=== PATIENT | female | born 2000 | race Caucasian/White ===

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

== ENCOUNTER 2018-12-13 11:18 | Observation (INO) ==
[2018-12-13 09:13] LABS: Bilirubin,Urine Negative (Negative); Blood,Urine Moderate (Negative); Clarity,Urine Cloudy (Clear); Color,Urine Yellow (Yellow); Glucose,Urine (UA) Normal (Normal); Ketones,Urine Negative (Negative); Leukocyte Esterase,Urine Moderate (Negative); Nitrite,Urine Negative (Negative); PH,Urine 6.5 pH Units (5.0-8.0); Protein,Urine Negative (Neg-Trace); Specific Gravity,Urine 1.018 (1.010-1.025); Urobilinogen,Urine Normal (Normal)
[2018-12-13 09:16] LABS: Bacteria,Urine Moderate per hpf (None-Few); Hyaline Casts,Urine None Seen per lpf (None-Few); RBC,Urine 15-30 per hpf (0-3); Squamous Epithelial Cell,Urine Many per lpf (None-Few); WBC,Urine 30-50 per hpf (0-3)
[2018-12-13 09:18] LABS: Amphetamine Screen,Urine Negative ng/mL (Cutoff=1000); Barbiturate Screen,Urine Negative ng/mL (Cutoff=200); Benzodiazepines Screen,Urine Negative ng/mL (Cutoff=200); Cannabinoid Screen,Urine Negative ng/mL (Cutoff = 50); Cocaine Screen,Urine Negative ng/mL (Cutoff= 300); Opiate Screen,Urine Negative ng/mL (Cutoff=300); Phencyclidine Screen,Urine Negative ng/mL (Cutoff=25)
[2018-12-13 09:48] LABS: Basophils % 0.2 %; Eosinophils # 0.1 K/mcL (0.0-0.6); Eosinophils % 1.2 %; Hematocrit 33.7 % (35.3-44.9); Immature Granulocytes % 0.7 % (0-4); Lymphocytes # 1.9 K/mcL (0.6-4.6); Lymphocytes % 16.9 %; Mean Corpuscular HGB Conc 32.6 g/dL (31.6-35.5); Mean Corpuscular Hemoglobin 27.9 pg (28.0-33.3); Mean Corpuscular Volume 85.5 fL (83.0-100.0); Monocytes # 0.8 K/mcL (0.0-1.3); Monocytes % 7.2 %; Neutrophils # 8.1 K/mcL (1.6-8.9); Platelet Count 201 K/mcL (140-400); Red Blood Count 3.94 M/mcL (3.82-4.97); Red Cell Distribution Width 13.9 % (11.5-14.5); Segmented Neutrophils % 73.8 %
[2018-12-13 10:11] LABS: Alanine Aminotransferase 8 Units/L (7-52); Amylase 45 Units/L (29-103); Aspartate Amino Transferase 11 Units/L (13-39); BUN/Creatinine Ratio 15 (6-26); Bilirubin,Total 0.3 mg/dL (0.3-1.0); Blood Urea Nitrogen 7 mg/dL (6-20); Lactate Dehydrogenase 139 Units/L (140-271); Lipase 45 Units/L (11-82); Uric Acid 4.2 mg/dL (2.3-7.6); eGFR For Non-African Americans > 60 (> 60)
[~2018-12-13 11:18] MED LIST: *HR* FentaNYL (PF) 100 MCG/2 ML VIAL IVP ONE; *HR* OxyCODONE/APAP 5/325 TABLET PO ONE; Ringers Solution, Lactated 1,000 ML IVC ONE
--- NOTE | 2018-12-13 13:16 | OB/GYN History & Physical ---
Date of Encounter: 12/13/18 Time of Encounter: 13:01 Assessment and Plan (1) Abdominal pain Current visit: Yes Status: Acute 18yo at 33+4wks GA who presents with concern for bartholoin gland cyst and concern for nephrolithiasis 1. Concern for nephrolithiasis - patient reports increased pain and discomfort at 0700 this AM (R side) with radiation - retroperitoneal US (KUB) performed: mild R sided hydronephrosis and ureter which is NORMAL in - UA was performed showing +blood, negative nitrites, moderate LE, and contaminated therefore was not sent for culture - patient will have urine culture sent to lab regardless for speciation incase UA was falsely negative, RX ordered for macrobid - denies greer blood appreciated in the urine grossly, but does report severe sharp, stabbing pain - denies fevers, chills, but does report nausea 2/2 increased discomfort - discussed po hydration with patient and reports primarily tea/soda/coffee intake - we discussed the likelihood of a renal stones being 2/2 to poor home hydration and water intake - patient was started on IV pain medication(S) and aggressive IV hydration, and as she tolerates - PO as well - patient given IV phenergan throughout her observation until she was able to tolerate po - will continue IVF at 125mL/hr LR until patient pain is improved, able to tolerate PO, and possible passage of stone - will plan for observation overnight with likely discharge to home tomorrow AM - RX will need to be signed to have patient complete macrobid regimen until culture confirmed for speciation 2. Concern for labial abscess, possible bartholin cyst - patient reports increased discomfort along the R labia - has become increasingly larger, and more painful and tender to touch - denies fever, chills, bleeding - no vaginal discharge - upon examination, measuring ~5cm x 3cm, fluctuate mass, fluid filled. No drainage appreciated, and was non tender to palpation. Erythematous during exam but no irrigation or signs or pruritis appreciated - we discussed potentially incising and draining this cyst but given the patient had NO pain with palpation on examination but was writhing from the stone, we held on instigating further discomfort. It is likely she will need a word catheter placed in the outpatient setting with close follow up for removal of catheter once healed - will start po ABx regardless for patient to take PO and have patient f/u outpatient 3. MWB - AZD PNC with [facility] - denies VB/LOF/contraction(S) - reports active movement - otherwise healthy and uncomplicated with plans for - most recent appt was 12/05/2018 - plan to have patient f/u next week - RNST x 2 Dispo: Plan to keep patient overnight for IV hydration, nausea and pain control. This is likely a renal stone 2/2 symptoms presented and an otherwise normal RUQ US. No concern for pancreatitis at this time. No obstetrical concerns at this time. MD FELIPE Qualifiers: Qualified Code(s): R10.31 - Right lower quadrant pain History of Present Illness Chief complaint: RUQ Pain HPI: Ms. Aponte is a 18yo female who presents at 33+4wks GA who reports RUQP that started this AM at 0700. Uncomplicated otherwise. 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 Last appointment at 12/05/2018. She denies vaginal bleeding, leaking of fluid, or contraction(S). Does also reports increased swelling in her labia, concerning for Bartholins gland cyst on the R side. The patient denies any history of gallbladder pain or issues with digestion. Reports to have had regular bowel movements without any blood appreciated nor with and dysuria/hematuria. No obstetrical complaints, reactive and reassuring NST for GA. Past Med Surg Social Fam HX - Past Medical History Medical history: no medical history Psychiatric history: no psych history - Past Surgical History Surgical History: non-contributory Additional surgical history: right hip surgery x2 - Social History Smoking Status: Never smoker Smokeless Tobacco Status: No Alcohol use: none Drug use: none - Family History Mother Adopted: No Family Member Ethnicity: Non- Living Status: Still Living Hx Family Cardiac Disorders: No Hx Family Respiratory Disorders: No Hx Family Cancer: No Hx Family GI Disorders: No Hx Family Endocrine Disorder: No Hx Family Neuromuscular Disorders: No Hx Family Neurologic Disorders: No Hx Family HEENT Disorders: No Hx Family Autoimmune Disorders: No Maternal Grandmother Hx Family Medical Disorders: Yes (stroke) Obstetrical History - Pregnancies : 2 Para: 1 Term: 1 Livin Medications and Allergies Flintstones Gummies 1 PO DAILY 11/14/18 [History] Allergy/AdvReac Type Severity Reaction Status Date / Time No Known Allergies Allergy Verified 08/06/17 14:48 Exam - Constitutional Constitutional: well developed, well nourished, mild distress - HEENT HEENT: Normocephaly, Mucus Membranes Moist - Lungs Respiratory exam: CTAB - Cardiovascular Cardiovascular exam: RRR - Abdomen Abdomen: Present: bowel sounds normal - Vagina Vagina: Present: normal moisture - Uterus Uterus exam: Present: normal size, normal contour - Anus/Rectum Anus/Rectum: Present: normal perianal skin, heme negative Results Result Diagrams: 12/13/18 09:00 12/13/18 09:00 Abnormal lab results Hgb 11.0 g/dL (11.5-15.4) L 12/13/18 09:00 Hct 33.7 % (35.3-44.9) L 12/13/18 09:00 MCH 27.9 pg (28.0-33.3) L 12/13/18 09:00 Creatinine 0.46 mg/dL (0.60-1.20) L 12/13/18 09:00 AST 11 Units/L (13-39) L 12/13/18 09:00 Lactate Dehydrogenase 139 Units/L (140-271) L 12/13/18 09:00 Urine Clarity Cloudy (Clear) A 12/13/18 08:14 Urine Blood Moderate (Negative) H 12/13/18 08:14 Ur Leukocyte Esterase Moderate (Negative) H 12/13/18 08:14 Urine Microscopic RBC 15-30 per hpf (0-3) H 12/13/18 08:14 Urine Microscopic WBC 30-50 per hpf (0-3) H 12/13/18 08:14 Ur Squamous Epith Cells Many per lpf (None-Few) H 12/13/18 08:14 Urine Bacteria Moderate per hpf (None-Few) H 12/13/18 08:14 Ur Culture Indicated? NO. (NO) A 12/13/18 08:14 All other labs normal. - VTE Reasons for not Prescribing Prophylaxis: Treatment not Indicated - Low risk for VTE
[2018-12-13] MEDS ORDERED: *HR* HYDROmorphone (PF) 1 MG/ML SYRINGE IVP ONE (13:32)
[2018-12-13] MEDS ORDERED: *HR* Promethazine 25 MG/ML VIAL IVP ONE (14:54)
[2018-12-13] MEDS: *HR* OxyCODONE Immed Rel 5 MG TABLET PO PRN ×3 (15:24→23:39)
[2018-12-13] MEDS: *HR* Promethazine 25 MG/ML VIAL IVP PRN (15:24)
[2018-12-13] MEDS: Ringers Solution, Lactated 1,000 ML IVC SCH ×2 (15:43→23:39)
[2018-12-13] MEDS ORDERED: *HR* Promethazine 25 MG/ML VIAL IVP PRN (16:46)
[2018-12-13] MEDS: Nitrofurantoin (BID) 100 MG CAPSULE PO SCH (17:45)
[2018-12-13] MEDS ORDERED: Famotidine 20 MG/2 ML VIAL IVP SCH (18:00)
[2018-12-13] MEDS ORDERED: *HR* HYDROmorphone 2 MG/ML SYRINGE IVP ONE (20:31)
[2018-12-14] MEDS: *HR* Promethazine 25 MG/ML VIAL IVP PRN (01:11)
[2018-12-14] MEDS ORDERED: Ondansetron 4 MG/2 ML VIAL IVP PRN (08:40)
[2018-12-14] MEDS: Nitrofurantoin (BID) 100 MG CAPSULE PO SCH ×2 (09:38→20:57)
[2018-12-14] MEDS ORDERED: *HR* Meperidine 50 MG/ML SYRINGE IVP PRN (10:02)
[2018-12-14 21:06] VITALS: BP 106/59
--- NOTE | 2018-12-14 21:59 | Discharge Summary ---
Date of Encounter: 12/14/18 Time of Encounter: 21:59 - Discharge Diagnosis (1) Abdominal pain Priority: Primary Status: Acute Comments: 18yo at 33+5wks [place] who presents with concern for bartholoin gland cyst and concern for nephrolithiasis 1. Concern for nephrolithiasis - patient admitted 12/13-12/14, with concern for kidney stone - retroperitoneal US (KUB) performed: mild R sided hydronephrosis and ureter which is NORMAL in - UA was performed showing +blood, negative nitrites, moderate LE, and contaminated therefore was not sent for culture - patient will have urine culture sent to lab regardless for speciation incase UA was falsely negative, RX ordered for macrobid while inpatient but stopped as patient had passed stone and pain signifncantly improved with both IV and po h ydration and pain control - improvement of nausea, able to tolerate PO - discussed po hydration with patient and reports primarily tea/soda/coffee intake - we will f/u on urine culture with patient and treat once returns, as her presentation and UA was consistent with nephrolithiasis and contaminated urine rather than a UTI 2. Concern for labial abscess, possible bartholin cyst - patient reports increased discomfort along the R labia - has become increasingly larger, and more painful and tender to touch - denies fever, chills, bleeding - no vaginal discharge - upon examination, measuring ~5cm x 3cm, fluctuate mass, fluid filled. No drainage appreciated, and was non tender to palpation. Erythematous during exam but no irrigation or signs or pruritis appreciated - we discussed potentially incising and draining this cyst but given the patient had NO pain with palpation on examination but was writhing from the stone, we held on instigating further discomfort. It is likely she will need a word catheter placed in the outpatient setting with close follow up for removal of catheter once healed - afebrile, VSS, HDS - recommendation for patient to start ABx one lancet and word catheter placed 3. 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 Will need to have bartholin cyst re-examined and likely word catheter placed. Recommendation for patient to start ABx once lanced open. Non tender to palpation during admission. Continue po hydration. MD FELIPE Qualifiers: Qualified Code(s): R10.31 - Right lower quadrant pain - Discharge Medications Prescriptions: No Action Flintstones Gummies 1 PO DAILY Home Medications: Flintstones Gummies 1 PO DAILY 11/14/18 [History] Allergies/Adverse Reactions: Allergy/AdvReac Type Severity Reaction Status Date / Time No Known Allergies Allergy Verified 08/06/17 14:48 Data Procedures and tests throughout hospitalization: Laboratory Tests 12/13/18 12/13/18 12/13/18 08:14 08:14 09:00 WBC 11.0 RBC 3.94 Hgb 11.0 L Hct 33.7 L MCV 85.5 MCH 27.9 L MCHC 32.6 RDW 13.9 Plt Count 201 MPV 10.0 Immature Gran % 0.7 Seg Neutrophils % 73.8 Lymphocytes % 16.9 Monocytes % 7.2 Eosinophils % 1.2 Basophils % 0.2 Neutrophils # 8.1 Lymphocytes # 1.9 Monocytes # 0.8 Eosinophils # 0.1 Basophils # 0.0 BUN Creatinine Est GFR ( Amer) Est GFR (Non-Af Amer) BUN/Creatinine Ratio Uric Acid Total Bilirubin Direct Bilirubin AST ALT Lactate Dehydrogenase Amylase Lipase Urine Color Yellow Urine Clarity Cloudy A Urine pH 6.5 Ur Specific [place] 1.018 Urine Protein Negative Urine Glucose (UA) Normal Urine Ketones Negative Urine Blood Moderate H Urine Nitrite Negative Urine Bilirubin Negative Urine Urobilinogen Normal Ur Leukocyte Esterase Moderate H Urine Microscopic RBC 15-30 H Urine Microscopic WBC 30-50 H Ur Squamous Epith Cells Many H Urine Bacteria Moderate H Hyaline Casts None Seen Ur Culture Indicated? NO. A Urine Opiates Screen Negative Ur Barbiturates Screen Negative Ur Phencyclidine Scrn Negative Ur Amphetamines Screen Negative U Benzodiazepines Scrn Negative Urine Cocaine Screen Negative U Marijuana (THC) Screen Negative Ur Drug Screen Interp See Below 12/13/18 09:00 WBC RBC Hgb Hct MCV MCH MCHC RDW Plt Count MPV Immature Gran % Seg Neutrophils % Lymphocytes % Monocytes % Eosinophils % Basophils % Neutrophils # Lymphocytes # Monocytes # Eosinophils # Basophils # BUN 7 Creatinine 0.46 L Est GFR ( Amer) > 60 Est GFR (Non-Af Amer) > 60 BUN/Creatinine Ratio 15 Uric Acid 4.2 Total Bilirubin 0.3 Direct Bilirubin 0.0 AST 11 L ALT 8 Lactate Dehydrogenase 139 L Amylase 45 Lipase 45 Urine Color Urine Clarity Urine pH Ur Specific [place] Urine Protein Urine Glucose (UA) Urine Ketones Urine Blood Urine Nitrite Urine Bilirubin Urine Urobilinogen Ur Leukocyte Esterase Urine Microscopic RBC Urine Microscopic WBC Ur Squamous Epith Cells Urine Bacteria Hyaline Casts Ur Culture Indicated? Urine Opiates Screen Ur Barbiturates Screen Ur Phencyclidine Scrn Ur Amphetamines Screen U Benzodiazepines Scrn Urine Cocaine Screen U Marijuana (THC) Screen Ur Drug Screen Interp - Impressions ITS Impressions Retroperitoneum Ultrasound 12/13/18 11:30 IMPRESSION: Mild right-sided hydronephrosis and hydroureter D/ / Juan Napier MD / Juan Napier MD Interpreting Provider: Juan Napier MD Date of admission: 12/13/18 08:12 Primary care physician: Jagjit Ovalle MD Discharging clinician: Arabella Osei Anticipated date of discharge: 12/14/18 - Patient Status Disposition: Home, Self-Care Condition: Good Overall status at discharge: patient is back to baseline - Discharge Instructions Follow Up With: Jagjit Ovalle MD [Primary Care Provider] - Hospital Course SL[facility]WYER Time Attestation: Total time spent providing and/or coordinating discharge services: Exam - Constitutional Vitals: Temp Pulse Resp BP Pulse Ox 98.4 F 104 14 106/59 99 12/14/18 20:00 12/14/18 20:00 12/14/18 20:00 12/14/18 20:00 12/14/18 20:00 General appearance IM: A&O X 0 - Respiratory Respiratory exam: Present: CTAB - Cardiovascular Cardiovascular exam IM: Present: RRR - GI/Abdominal Incision: normal, dry, intact - Rectal Rectal exam: deferred - Neurological Exam Neurological exam: CN II-XII intact - VTE Reasons for not Prescribing Prophylaxis: Treatment not Indicated - Low risk for VTE
== END 2018-12-14 22:20 | disposition home or self-care (01) ==
LOC: 1NENULAB → 1NENUOBS 12-14 09:53
PROVIDERS: ADMIT Advanced Practice Midwife; ATTEND Advanced Practice Midwife

== ENCOUNTER 2019-04-03 17:18 | Observation (INO) ==
[2019-04-03] MEDS ORDERED: methylPREDNISolone 125 MG/2 ML VIAL IM ONE (19:50)
[2019-04-03] MEDS ORDERED: Famotidine 20 MG TABLET PO ONE (19:54)
[2019-04-03] MEDS ORDERED: EPINEPHrine 1 MG/ML VIAL IM ONE (20:45)
[2019-04-03 22:27] LABS: Basophils % 0.1 %; Eosinophils % 0.1 %; Hematocrit 43.7 % (35.3-44.9); Hemoglobin 14.2 g/dL (11.5-15.4); Immature Granulocytes % 0.4 % (0-4); Lymphocytes # 2.9 K/mcL (0.6-4.6); Lymphocytes % 13.7 %; Mean Corpuscular HGB Conc 32.5 g/dL (31.6-35.5); Mean Corpuscular Hemoglobin 26.8 pg (28.0-33.3); Mean Corpuscular Volume 82.6 fL (83.0-100.0); Mean Platelet Volume 10.2 fL (9.4-12.4); Monocytes # 1.2 K/mcL (0.0-1.3); Monocytes % 5.5 %; Neutrophils # 17.1 K/mcL (1.6-8.9); Platelet Count 391 K/mcL (140-400); Red Blood Count 5.29 M/mcL (3.82-4.97); Red Cell Distribution Width 14.6 % (11.5-14.5); Segmented Neutrophils % 80.2 %; White Blood Count 21.4 K/mcL (4.3-11.1)
[2019-04-03 22:47] LABS: Alanine Aminotransferase 30 Units/L (7-52); Albumin 4.1 g/dL (3.5-5.7); Albumin/Globulin Ratio 1.6 (1.1-2.2); Alkaline Phosphatase 73 Units/L (34-104); Aspartate Amino Transferase 22 Units/L (13-39); BUN/Creatinine Ratio 11 (6-26); Bilirubin,Total 0.3 mg/dL (0.3-1.0); Blood Urea Nitrogen 7 mg/dL (6-20); C-Reactive Protein 7 mg/L (Less than 10); Calcium 9.2 mg/dL (8.6-10.3); Carbon Dioxide 19 mEq/L (23-29); Chloride 106 mEq/L (98-107); Globulin 2.5 g/dL (2.4-3.5); Glucose 123 mg/dL (70-105); Osmolality,Calculated 283 (280-300); Potassium 3.7 mEq/L (3.5-5.1); Sodium 137 mEq/L (136-145); Total Protein 6.6 g/dL (6.4-8.9); eGFR For African Americans > 60 (> 60); eGFR For Non-African Americans > 60 (> 60)
[2019-04-03] MEDS ORDERED: 0.9 % Sodium Chloride 1,000 ML IVC ONE (23:24)
[2019-04-04 00:14] LABS: Bilirubin,Urine Negative (Negative); Blood,Urine Trace (Negative); Clarity,Urine Clear (Clear); Color,Urine Yellow (Yellow); Glucose,Urine (UA) Normal (Normal); Ketones,Urine Negative (Negative); Leukocyte Esterase,Urine Small (Negative); Nitrite,Urine Negative (Negative); Protein,Urine Negative (Neg-Trace); Specific Gravity,Urine 1.007 (1.010-1.025); Urobilinogen,Urine Normal (Normal)
[2019-04-04 00:16] LABS: Bacteria,Urine None Seen per hpf (None-Few); Hyaline Casts,Urine None Seen per lpf (None-Few); RBC,Urine 0-3 per hpf (0-3); Squamous Epithelial Cell,Urine Many per lpf (None-Few)
[2019-04-04] MEDS ORDERED: Naloxone 0.4 MG/ML INJ IVP PRN (01:57)
[2019-04-04] MEDS ORDERED: *HR* Metoprolol 5 MG/5 ML VIAL IVP ONE (02:02)
[2019-04-04] MEDS ORDERED: *HR* Metoprolol 5 MG/5 ML VIAL IVP PRN (06:06)
[2019-04-04] MEDS ORDERED: MethylPREDNISolone 40 MG/ML VIAL IVP SCH (08:54)
[2019-04-04] MEDS ORDERED: Famotidine 20 MG TABLET PO SCH (09:00)
[2019-04-04 11:13] VITALS: BP 126/77
[2019-04-04] MEDS ORDERED: *HR* Heparin 5,000 UNIT/ML VIAL SQ SCH (18:00)
== END 2019-04-04 12:05 | disposition home or self-care (01) ==
LOC: 3NENU 17:18 → EMEROOARM 17:18 → ICNU 23:43 → 3NENU 04-04 01:09
PROVIDERS: ADMIT Internal Medicine Nephrology; ATTEND Internal Medicine Nephrology

== ENCOUNTER → 2020-11-03 02:02 | Observation (INO) ==
[2020-11-02 17:37] LABS: Bacteria,Urine Few per hpf (None-Few); Bilirubin,Urine Negative (Negative); Blood,Urine Small (Negative); Clarity,Urine Clear (Clear); Color,Urine Light-Yellow (Yellow); Glucose,Urine (UA) Normal (Normal); Hyaline Casts,Urine Few per lpf (None Seen); Ketones,Urine Negative (Negative); Leukocyte Esterase,Urine Moderate (Negative); Mucus,Urine Few per lpf (None-Few); Nitrite,Urine Negative (Negative); PH,Urine 6.5 pH Units (5.0-8.0); Protein,Urine Trace mg/dL (Neg-Trace); RBC,Urine 0-3 per hpf (0-3); Squamous Epithelial Cell,Urine Moderate per hpf (None-Few); Urobilinogen,Urine Normal (Normal); WBC,Urine 0-3 per hpf (0-3)
[2020-11-02 22:08] LABS: Basophils % 0.2 %; Eosinophils # 0.2 K/mcL (0.0-0.6); Eosinophils % 1.5 %; Hematocrit 32.6 % (35.3-44.9); Hemoglobin 10.3 g/dL (11.5-15.4); Immature Granulocytes % 0.6 % (0-4); Lymphocytes # 2.5 K/mcL (0.6-4.6); Lymphocytes % 17.5 %; Mean Corpuscular HGB Conc 31.6 g/dL (31.6-35.5); Mean Corpuscular Hemoglobin 26.9 pg (28.0-33.3); Mean Corpuscular Volume 85.1 fL (83.0-100.0); Mean Platelet Volume 10.1 fL (9.4-12.4); Monocytes % 6.7 %; Neutrophils # 10.5 K/mcL (1.6-8.9); Platelet Count 247 K/mcL (140-400); Red Blood Count 3.83 M/mcL (3.82-4.97); Red Cell Distribution Width 15.3 % (11.5-14.5); Segmented Neutrophils % 73.5 %; White Blood Count 14.3 K/mcL (4.3-11.1)
[~2020-11-03 02:02] MED LIST changes: -*HR* FentaNYL (PF) 100 MCG/2 ML VIAL IVP ONE; -*HR* OxyCODONE/APAP 5/325 TABLET PO ONE; +FLU Vac QV 20-21 (6Month+)/PF 0.5 ML SYRINGE IM ONE; +NIFEdipine 10 MG CAPSULE PO ONE; +Ondansetron ODT 4 MG TAB.RAPDIS SL ONE; +Ringers Solution, Lactated 1,000 ML IVC SCH; +Ringers Solution, Lactated 1,000 ML ONE; +cefTRIAXone 2,000 MG in Water for inj. (sterile) 20 ML IVP ONE
== END | disposition home or self-care (01) ==
LOC: 1NENULAB
PROVIDERS: ADMIT Obstetrics & Gynecology; ATTEND Obstetrics & Gynecology

== ENCOUNTER → 2020-11-08 17:15 | Observation (INO) ==
[2020-11-08 13:46] LABS: Bacteria,Urine Few per hpf (None-Few); Bilirubin,Urine Negative (Negative); Blood,Urine Negative (Negative); Clarity,Urine Clear (Clear); Color,Urine Light-Yellow (Yellow); Glucose,Urine (UA) Normal (Normal); Ketones,Urine Negative (Negative); Leukocyte Esterase,Urine Large (Negative); Mucus,Urine Few per lpf (None-Few); Nitrite,Urine Negative (Negative); PH,Urine 7.5 pH Units (5.0-8.0); Protein,Urine Negative (Neg-Trace); RBC,Urine 0-3 per hpf (0-3); Specific Gravity,Urine 1.013 (1.010-1.025); Squamous Epithelial Cell,Urine Moderate per hpf (None-Few); Urobilinogen,Urine Normal (Normal); WBC,Urine 0-3 per hpf (0-3)
[2020-11-08 14:44] LABS: Basophils % 0.2 %; Eosinophils # 0.3 K/mcL (0.0-0.6); Eosinophils % 2.2 %; Hematocrit 31.9 % (35.3-44.9); Hemoglobin 9.9 g/dL (11.5-15.4); Immature Granulocytes % 0.6 % (0-4); Lymphocytes % 14.9 %; Mean Corpuscular Hemoglobin 26.8 pg (28.0-33.3); Mean Corpuscular Volume 86.2 fL (83.0-100.0); Mean Platelet Volume 10.2 fL (9.4-12.4); Monocytes # 0.8 K/mcL (0.0-1.3); Monocytes % 6.3 %; Neutrophils # 10.1 K/mcL (1.6-8.9); Platelet Count 238 K/mcL (140-400); Red Cell Distribution Width 14.9 % (11.5-14.5); Segmented Neutrophils % 75.8 %; White Blood Count 13.3 K/mcL (4.3-11.1)
[2020-11-08 14:56] LABS: Protein/Creatinine Ratio,Urine 0.15 mg/mg (0.00-0.20)
[2020-11-08 15:03] LABS: Alanine Aminotransferase 8 Units/L (7-52); Aspartate Amino Transferase 10 Units/L (13-39); BUN/Creatinine Ratio 15 (6-26); Blood Urea Nitrogen 6 mg/dL (6-20); Lactate Dehydrogenase 139 Units/L (140-271); Uric Acid 3.6 mg/dL (2.3-7.6); eGFR For African Americans > 60 (> 60); eGFR For Non-African Americans > 60 (> 60)
[2020-11-08 16:26] LABS: Candida DNA Not Detected (Not Detect); Gardnerella DNA DETECTED (Not Detect); Trichomonas DNA Not Detected (Not Detect)
[~2020-11-08 17:15] MED LIST changes: +Acetaminophen 325 MG TABLET PO ONE; -FLU Vac QV 20-21 (6Month+)/PF 0.5 ML SYRINGE IM ONE; -Ondansetron ODT 4 MG TAB.RAPDIS SL ONE; -Ringers Solution, Lactated 1,000 ML IVC ONE; -Ringers Solution, Lactated 1,000 ML IVC SCH; -Ringers Solution, Lactated 1,000 ML ONE; -cefTRIAXone 2,000 MG in Water for inj. (sterile) 20 ML IVP ONE
== END | disposition home or self-care (01) ==
LOC: 1NENULAB
PROVIDERS: ADMIT Obstetrics & Gynecology; ATTEND Obstetrics & Gynecology

== ENCOUNTER → 2020-12-07 01:30 | Observation (INO) ==
[2020-12-06 23:44] LABS: Bilirubin,Urine Negative (Negative); Blood,Urine Trace (Negative); Clarity,Urine Clear (Clear); Color,Urine Colorless (Yellow); Glucose,Urine (UA) Normal (Normal); Ketones,Urine Negative (Negative); Leukocyte Esterase,Urine Negative (Negative); Nitrite,Urine Negative (Negative); PH,Urine 6.5 pH Units (5.0-8.0); Protein,Urine Negative (Neg-Trace); Specific Gravity,Urine 1.005 (1.010-1.025); Urobilinogen,Urine Normal (Normal)
[2020-12-06 23:47] LABS: Squamous Epithelial Cell,Urine Few per hpf (None-Few)
[2020-12-06 23:48] LABS: Bacteria,Urine Few per hpf (None-Few); Transitional Epi Cells,Urine Few per hpf (None-Few); WBC,Urine 0-3 per hpf (0-3)
== END | disposition home or self-care (01) ==
LOC: 1NENULAB
PROVIDERS: ADMIT Advanced Practice Midwife; ATTEND Advanced Practice Midwife

== ENCOUNTER → 2020-12-24 16:56 | Observation (INO) ==
[2020-12-24 12:20] LABS: Bilirubin,Urine Negative (Negative); Blood,Urine Trace (Negative); Clarity,Urine Turbid (Clear); Color,Urine Yellow (Yellow); Glucose,Urine (UA) Normal (Normal); Ketones,Urine Negative (Negative); Leukocyte Esterase,Urine Negative (Negative); Nitrite,Urine Negative (Negative); PH,Urine 7.5 pH Units (5.0-8.0); Protein,Urine 30 mg/dL (Neg-Trace); Specific Gravity,Urine 1.024 (1.010-1.025); Urobilinogen,Urine Normal (Normal)
[2020-12-24 12:26] LABS: Bacteria,Urine Few per hpf (None-Few); Mucus,Urine Few per lpf (None-Few); RBC,Urine 0-3 per hpf (0-3); Squamous Epithelial Cell,Urine Few per hpf (None-Few); WBC,Urine 0-3 per hpf (0-3)
[2020-12-24 12:54] LABS: Protein/Creatinine Ratio,Urine 0.16 mg/mg (0.00-0.20)
[2020-12-24 13:04] LABS: Basophils % 0.1 %; Eosinophils # 0.2 K/mcL (0.0-0.6); Eosinophils % 1.1 %; Hematocrit 29.4 % (35.3-44.9); Lymphocytes # 1.9 K/mcL (0.6-4.6); Mean Corpuscular HGB Conc 30.6 g/dL (31.6-35.5); Mean Corpuscular Hemoglobin 25.5 pg (28.0-33.3); Mean Corpuscular Volume 83.3 fL (83.0-100.0); Monocytes # 0.9 K/mcL (0.0-1.3); Monocytes % 6.5 %; Neutrophils # 11.2 K/mcL (1.6-8.9); Platelet Count 238 K/mcL (140-400); Red Blood Count 3.53 M/mcL (3.82-4.97); Segmented Neutrophils % 78.3 %; White Blood Count 14.4 K/mcL (4.3-11.1)
[2020-12-24 13:05] LABS: Alanine Aminotransferase 9 Units/L (7-52); Aspartate Amino Transferase 10 Units/L (13-39); BUN/Creatinine Ratio 13 (6-26); Blood Urea Nitrogen 5 mg/dL (6-20); Lactate Dehydrogenase 158 Units/L (140-271); Uric Acid 4.1 mg/dL (2.3-7.6); eGFR For African Americans > 60 (> 60); eGFR For Non-African Americans > 60 (> 60)
[~2020-12-24 16:56] MED LIST changes: -Acetaminophen 325 MG TABLET PO ONE; +Ferumoxytol 510 MG in 0.9 % Sodium Chloride 100 ML IVPB ONE; -NIFEdipine 10 MG CAPSULE PO ONE; +Ringers Solution, Lactated 1,000 ML IVC ONE
== END | disposition home or self-care (01) ==
LOC: 1NENULAB
PROVIDERS: ADMIT Obstetrics & Gynecology; ATTEND Obstetrics & Gynecology

== ENCOUNTER 2021-01-18 15:34 | Inpatient (IN) | END 2021-01-18 16:01 | disposition home or self-care (01) | DRG 566 | LOC: 1NENULAB | PROVIDERS: ADMIT Obstetrics & Gynecology; ATTEND Obstetrics & Gynecology ==

== ENCOUNTER 2021-01-21 05:59 | Inpatient (IN) ==
[2021-01-21] MEDS ORDERED: Lidocaine 1% 20 ML MDV INFILT PRN (06:20)
[2021-01-21] MEDS ORDERED: Metoclopramide 10 MG/2 ML VIAL IVP PRN (06:20)
[2021-01-21] MEDS ORDERED: Naloxone 0.4 MG/ML INJ IVP PRN (06:20)
[2021-01-21] MEDS ORDERED: *HR* Nalbuphine 10 MG/ML AMPUL IV PRN (06:20)
[2021-01-21] MEDS ORDERED: Ondansetron 4 MG/2 ML VIAL IVP PRN (06:20)
[2021-01-21] MEDS ORDERED: Famotidine 20 MG/2 ML VIAL IVP PRN (06:20)
[2021-01-21] MEDS: miSOPROStoL 25 MCG TABLET PO PRN ×2 (07:56→13:09)
[2021-01-21] MEDS: Ringers Solution, Lactated 1,000 ML IVC SCH ×2 (07:57→20:56)
[2021-01-21 08:07] LABS: Basophils % 0.2 %; Eosinophils # 0.1 K/mcL (0.0-0.6); Eosinophils % 0.7 %; Hematocrit 31.9 % (35.3-44.9); Hemoglobin 10.3 g/dL (11.5-15.4); Immature Granulocytes % 0.8 % (0-4); Lymphocytes # 1.6 K/mcL (0.6-4.6); Lymphocytes % 14.1 %; Mean Corpuscular HGB Conc 32.3 g/dL (31.6-35.5); Mean Corpuscular Hemoglobin 27.5 pg (28.0-33.3); Mean Corpuscular Volume 85.1 fL (83.0-100.0); Mean Platelet Volume 10.2 fL (9.4-12.4); Monocytes # 0.9 K/mcL (0.0-1.3); Monocytes % 7.6 %; Neutrophils # 8.6 K/mcL (1.6-8.9); Platelet Count 196 K/mcL (140-400); Red Blood Count 3.75 M/mcL (3.82-4.97); Red Cell Distribution Width 19.5 % (11.5-14.5); Segmented Neutrophils % 76.6 %; White Blood Count 11.2 K/mcL (4.3-11.1)
[2021-01-21] MEDS ORDERED: *HR* FentaNYL (PF) 100 MCG/2 ML VIAL EP ONE (08:39)
[2021-01-21] MEDS ORDERED: EPHEDrine 50 MG/ML VIAL IVP PRN (08:39)
[2021-01-21] MEDS ORDERED: Ropivacaine/PF 0.2% 20 ML VIAL EP ONE (08:39)
[2021-01-21] MEDS ORDERED: Epidural Premix (fent/bupiv) 110 ML EP SCH (08:45)
[2021-01-21] MEDS ORDERED: Ropivacaine/PF 0.2% 20 ML VIAL ONE (08:50)
[2021-01-21] MEDS ORDERED: Lidocaine -MPF 2% 5 ML VIAL ONE (08:50)
[2021-01-21] MEDS ORDERED: Acetaminophen 325 MG TABLET PO ONE ×2 (09:02→15:54)
[2021-01-21] MEDS ORDERED: Calcium Gluconate 1,000 MG/10 ML VIAL IVP PRN (09:25)
[2021-01-21 09:36] LABS: Alanine Aminotransferase 8 Units/L (7-52); Aspartate Amino Transferase 12 Units/L (13-39); BUN/Creatinine Ratio 9 (6-26); Blood Urea Nitrogen 4 mg/dL (6-20); Lactate Dehydrogenase 205 Units/L (140-271); Uric Acid 3.9 mg/dL (2.3-7.6); eGFR For African Americans > 60 (> 60); eGFR For Non-African Americans > 60 (> 60)
[2021-01-21] MEDS: Magnesium Sulf 20 gm/SW 500mL 20 GM/500 ML IV.SOLN IVC SCH ×2 (11:23→22:20)
[2021-01-21 11:52] LABS: Amphetamine Screen,Urine Negative ng/mL (Cutoff=1000); Barbiturate Screen,Urine Negative ng/mL (Cutoff=200); Benzodiazepines Screen,Urine Negative ng/mL (Cutoff=200); Cannabinoid Screen,Urine Positive ng/mL (Cutoff = 50); Cocaine Screen,Urine Negative ng/mL (Cutoff= 300); Opiate Screen,Urine Negative ng/mL (Cutoff=300); Phencyclidine Screen,Urine Negative ng/mL (Cutoff=25)
[2021-01-21] MEDS ORDERED: *HR* Labetalol 20 MG/4 ML SYRINGE IVP ONE ×2 (15:44)
[2021-01-21] MEDS ORDERED: Oxytocin 20 units/ LR 1000 mL 20 UNIT/1,000 ML BAG IVC SCH (17:15)
[2021-01-22] MEDS ORDERED: *HR* FentaNYL (PF) 100 MCG/2 ML VIAL ONE (05:26)
[2021-01-22] MEDS ORDERED: Measles/Mumps/Rubella Vacc 0.5 ML VIAL SQ PRN (09:23)
[2021-01-22] MEDS ORDERED: Rho Immune Globulin 1,500 UNIT SYRINGE IM PRN (09:23)
[2021-01-22] MEDS ORDERED: Oxytocin 20 units/ LR 1000 mL 20 UNIT/1,000 ML BAG IVC SCH (09:23)
[2021-01-22 10:17] LABS: Creatinine,Urine 77 mg/dL; Protein/Creatinine Ratio,Urine 0.29 mg/mg (0.00-0.20)
[2021-01-22] MEDS: Ibuprofen 600 MG TABLET PO PRN ×2 (10:17→16:51)
[2021-01-22] MEDS ORDERED: Calcium Gluconate 1,000 MG/10 ML VIAL IVP PRN (11:29)
[2021-01-22] MEDS: Magnesium Sulf 20 gm/SW 500mL 20 GM/500 ML IV.SOLN IVC SCH ×2 (11:47→20:05)
[2021-01-22] MEDS: Acetaminophen 325 MG TABLET PO PRN ×2 (15:48→22:13)
[2021-01-22] MEDS: Prenatal Vit/FA 1 EACH TABLET PO SCH (16:16)
[2021-01-23] MEDS: Ibuprofen 600 MG TABLET PO PRN ×4 (01:51→23:01)
[2021-01-23 04:55] LABS: Basophils % 0.2 %; Eosinophils # 0.2 K/mcL (0.0-0.6); Eosinophils % 1.6 %; Hematocrit 29.6 % (35.3-44.9); Hemoglobin 9.2 g/dL (11.5-15.4); Immature Granulocytes % 0.8 % (0-4); Lymphocytes # 2.1 K/mcL (0.6-4.6); Lymphocytes % 16.9 %; Mean Corpuscular HGB Conc 31.1 g/dL (31.6-35.5); Mean Corpuscular Volume 86.8 fL (83.0-100.0); Mean Platelet Volume 9.8 fL (9.4-12.4); Monocytes # 0.9 K/mcL (0.0-1.3); Monocytes % 7.4 %; Neutrophils # 9.3 K/mcL (1.6-8.9); Platelet Count 195 K/mcL (140-400); Red Blood Count 3.41 M/mcL (3.82-4.97); Red Cell Distribution Width 19.7 % (11.5-14.5); Segmented Neutrophils % 73.1 %; White Blood Count 12.7 K/mcL (4.3-11.1)
[2021-01-23] MEDS: Prenatal Vit/FA 1 EACH TABLET PO SCH (07:47)
[2021-01-24] MEDS: Ibuprofen 600 MG TABLET PO PRN (05:44)
[2021-01-24 08:24] VITALS: BP 112/71
[2021-01-24 09:03] LABS: Basophils % 0.2 %; Eosinophils # 0.3 K/mcL (0.0-0.6); Eosinophils % 2.3 %; Hematocrit 29.1 % (35.3-44.9); Immature Granulocytes % 0.9 % (0-4); Lymphocytes # 2.3 K/mcL (0.6-4.6); Lymphocytes % 17.5 %; Mean Corpuscular HGB Conc 30.9 g/dL (31.6-35.5); Mean Corpuscular Hemoglobin 27.2 pg (28.0-33.3); Mean Corpuscular Volume 87.9 fL (83.0-100.0); Mean Platelet Volume 9.6 fL (9.4-12.4); Monocytes # 0.9 K/mcL (0.0-1.3); Monocytes % 6.7 %; Neutrophils # 9.6 K/mcL (1.6-8.9); Platelet Count 173 K/mcL (140-400); Red Blood Count 3.31 M/mcL (3.82-4.97); Red Cell Distribution Width 19.4 % (11.5-14.5); Segmented Neutrophils % 72.4 %; White Blood Count 13.3 K/mcL (4.3-11.1)
[2021-01-24 09:24] LABS: Alanine Aminotransferase 8 Units/L (7-52); Aspartate Amino Transferase 11 Units/L (13-39); BUN/Creatinine Ratio 18 (6-26); Blood Urea Nitrogen 9 mg/dL (6-20); Lactate Dehydrogenase 175 Units/L (140-271); Uric Acid 5.2 mg/dL (2.3-7.6); eGFR For African Americans > 60 (> 60); eGFR For Non-African Americans > 60 (> 60)
[2021-01-24] MEDS: Prenatal Vit/FA 1 EACH TABLET PO SCH (09:30)
== END 2021-01-24 11:00 | disposition home or self-care (01) | DRG 560 ==
LOC: 1NENULAB 05:59 → 1NENUOBS 01-22 09:21
PROVIDERS: ADMIT Student in an Organized Health Care Education/Training Program; ATTEND Student in an Organized Health Care Education/Training Program